=== PATIENT | female | born 1960 | race Caucasian/White ===

== ENCOUNTER 2017-07-04 18:28 | Emergency (ER) | payer BC ==
[~2017-07-04] VITALS: Ht 162.6 cm; Wt 67.0 kg
[2017-07-04 18:32] VITALS: BP 154/86
[2017-07-04] MEDS ORDERED: BUPIVAcaine/PF 2.5 mg/ml (0.25%) 30ml vial IJ ONE (18:50)
[2017-07-04] MEDS ORDERED: TETanus/Pertussis (Acell)/Diphther VAC/PF (Tdap-Adult) 0.5ml syringe IM ONE (18:50)
[2017-07-04] MEDS ORDERED: CEPH-572 PO (19:13)
== END 2017-07-04 19:35 | disposition home or self-care (01) ==
LOC: ER 18:28
DX: S61.011A Laceration without foreign body of right thumb without damage to nail, initial encounter (principal); W45.8XXA Other foreign body or object entering through skin, initial encounter; Y93.89 Activity, other specified; Y92.89 Other specified places as the place of occurrence of the external cause; Y99.8 Other external cause status
CPT/HCPCS: 12001; 90471; 90715; 99283; J3490